=== PATIENT | male | born 2005 | race Caucasian/White ===

== ENCOUNTER 2024-04-23 20:41 | Emergency (ER) | payer OTHER, SELFPAY ==
[2024-04-23 20:43] VITALS: BP 147/101
[2024-04-23 21:09] LABS: Hematocrit 44.7 % (39.0-52.0); Hemoglobin 14.8 g/dL (13.0-18.0); Mean Corp Hgb Conc. 33.1 g/dL (33.0-37.0); Mean Corpuscular Hgb 29.7 pg (27.0-31.0); Mean Corpuscular Volume 89.6 fL (80.0-94.0); Mean Platelet Volume 10.4 fL (7.4-10.4); Platelet Count 179 10^3/uL (130-400); Red Blood Cell Count 4.99 10^6/uL (4.70-6.10); Red Cell Dist. Width 13.7 % (11.5-14.5); White Blood Cell Count 15.5 10^3/uL (4.8-10.8)
[2024-04-23 21:20] LABS: COVID-19 Antigen Negative (Negative)
[2024-04-23 21:30] LABS: Monotest Positive (Negative)
[2024-04-23 21:30] LABS: ALT (SGPT) 157 U/L (0-50); AST (SGOT) 103 U/L (17-59); Albumin 4.3 g/dl (3.5-5.0); Alkaline Phosphatase 214 U/L (38-126); Blood Urea Nitrogen 9 mg/dl (9-20); Carbon Dioxide 26 mmol/L (22-30); Chloride 96 mmol/L (98-107); Glucose 159 mg/dl (70-99); Sodium 135 mmol/L (135-145); Total Bilirubin 1.3 mg/dl (0.2-1.3); Total Protein 7.7 g/dl (6.3-8.2); eGFR > 60.00
[2024-04-23 21:39] LABS: % Basophils 0.8 % (0-2); % Eosinophils 0.1 % (0-6); % Immature Granulocytes 0.5 % (0-0.5); % Lymphocytes 53.7 % (20.5-51.1); % Monocytes 9.3 % (1.7-9.3); % Neutrophils 35.6 % (42.2-75.2); Absolute Basophils 0.1 10^3/uL (0-0.2); Absolute Immature Granulocytes 0.1 10^3/uL (0-0.05); Absolute Lymphocytes 8.3 10^3/uL (1.2-3.4); Absolute Monocytes 1.4 10^3/uL (0.1-0.6); Absolute Neutrophils 5.5 10^3/uL (1.4-6.5); Nucleated Red Blood Cells % 0 % (-)
--- NOTE | 2024-04-23 21:46 | ED.GENMED ---
History of Present Illness
General
Chief Complaint: Throat Problem
Source: patient
Exam Limitations: none
Time Seen by Provider: 04/23/24 21:36
Nursing documentation reviewed up to this point in time: agreed with
History of Present Illness
History of Present Illness:
19-year-old male presenting to the emergency department today with concerns of throat discomfort over the past 5 days or so also has had some vague upper respiratory symptoms as well. He did call his [place] care [place] from [place] that
prescribed him steroids to help with swelling which she started this morning. He has been able to tolerate by mouth he had some vague discomfort to his left upper quadrant of his abdomen otherwise no additional abdominal pain. No chest pain or
shortness of breath..
Review of Systems
Review of Systems
Allergies reviewed?: Yes
All Other Systems: ROS reviewed and negative except as documented in HPI and ROS
Phy Exam
Physical Exam
Physical Exam:
GENERAL: Alert , in no apparent distress
EYE: pupils equal and reactive
NECK: Supple, no significant adenopathy.
ENT: Swollen exudative tonsils bilaterally with grossly patent airway uvula midline posterior cervical lymphadenopathy o/p clr, mmm.
CARDIAC: Regular rate and rhythm .
LUNGS: Clear breath sounds bilaterally, no acute respiratory distress, no wheezes/rales/rhonchi
ABDOMEN: Soft, without focal tenderness, no r/g, no cvat
NEUROLOGICAL: Alert and oriented, no focal neuro deficits
SKIN: Warm and dry, skin intact.
MUSCULOSKELETAL: No edema, well perfused.
PSYCH: Normal and appropriate interaction.
Course
Orders/Labs/Results
Orders:
Orders
04/23/24 20:50
Complete Blood Count/With Diff Urgent
Comprehensive Metabolic Panel Urgent
Rapid Strep Group A Urgent
VICKI Source: Throat/Pharynx
Specimen Description:
Date Specimen was Collected: 04/23/24
Time Specimen was Collected: 20:47
04/23/24 20:52
COVID-19 Antigen Urgent
Source: Nasal Swab
Monotest Urgent
Comment: ADD ON
Influenza A+B Rapid Molecular Urgent
VICKI Source: Nasal Swab
Specimen Description:
04/23/24 20:58
Add On- LAB Urgent
Tests Added?: Monotest
04/23/24 21:49
Ketorolac [Toradol] 30 mg IM NOW STA
Abnormal Lab Results
04/23/24 04/23/24
20:50 20:52
WBC 15.5 H 10^3/uL
(4.8-10.8)
Abs Immat Gran (auto) 0.1 H 10^3/uL
(0-0.05)
Absolute Lymphs (auto) 8.3 H 10^3/uL
(1.2-3.4)
Absolute Monos (auto) 1.4 H 10^3/uL
(0.1-0.6)
Neutrophils % 35.6 L %
(42.2-75.2)
Lymphocytes % 53.7 H %
(20.5-51.1)
Chloride 96 L mmol/L
(98-107)
Glucose 159 H mg/dl
(70-99)
AST 103 H U/L
(17-59)
ALT 157 H U/L
(0-50)
Alkaline Phosphatase 214 H U/L
(38-126)
Monoscreen Positive A
(Negative)
04/23/24 20:50
04/23/24 20:50
Vital Signs
Initial and Last Documented VS:
Initial Vital Signs
Temp Pulse Resp BP Pulse Ox
99.9 F 122 19 147/101 97
04/23/24 20:43 04/23/24 20:43 04/23/24 20:43 04/23/24 20:43 04/23/24 20:43
Last Documented Vital Signs
Temp Pulse Resp BP Pulse Ox
99.9 F 122 19 147/101 97
04/23/24 20:43 04/23/24 20:43 04/23/24 20:43 04/23/24 20:43 04/23/24 20:43
MDM/Problems Addressed
MDM/Problems Addressed:
19-year-old male presenting to the emergency department today with concerns of throat discomfort over the past 5 days or so on arrival here initially tachycardic but improving without specific treatment normal heart rate on my examination. Labs
were obtained showing elevated white count as well as elevated function test. Patient was positive for mono. No obvious splenic enlargement on abdominal examination. He does have swollen exudative tonsils and posterior cervical lymphadenopathy.
Patient is able to tolerate by mouth with started on steroids by the primary care doctor starting this morning. He was advised to continue the steroids to avoid any excessive physical activity or contact sports advised to stay hydrated and return
for any worsening, new or concerning symptoms. Otherwise stable for discharge at this time.
*Critical Care Note
Total Time (30-74mins, 75-104mins- exclusive of procedures): Not Applicable
ED Attending Note
-
Portions of this chart may have been created with voice recognition software.� Occasional wrong word or��sound alike� substitutions may have occurred due to the inherent limitations of voice recognition software.
Discharge Plan
Departure
Patient Disposition: Home (Routine Discharge)
Date of Disposition: 04/23/24
Time of Disposition: 21:47
Patient with high blood pressure during this ER visit?: No
Condition: Good
Covid-19: Not Applicable
Discharge Problem:
Mononucleosis
Instructions: Mononucleosis (DC)
Activity Restrictions/Additional Instructions:
You came to the emergency department today with concerns of throat swelling. This appears to be consistent with mono. Please follow closely with your primary care doctor and 3 weeks and do not engage in any significant physical activity or contact
sports. You also need repeated labs to ensure that your liver function test are improving. Return to the emergency department for any worsening, new or concerning symptoms.
Interventions
Interventions:
*Risk Screen - Suicide Last Done: 04/23/24 20:45
*Neglect/Abuse Screening Last Done: 04/23/24 20:45
*ED COVID-19 Vaccine History Last Done: 04/23/24 20:45
Discharge Date and Time
Print Language: ARABIC
[2024-04-23] MEDS: TORADOL 30 MG IM (22:01)
== END 2024-04-23 22:09 | disposition home or self-care (01) ==
LOC: EMR 20:41
PROVIDERS: Emergency Medicine; EMERGENCY PHYSICIAN Emergency Medicine
DX: B27.90 Infectious mononucleosis, unspecified without complication (principal)
CPT/HCPCS: 96372; 99284; 80053; 85025; 86308; 87070; 87502; 87811; 87880